=== PATIENT | female | born 1985 | race Caucasian/White ===

== ENCOUNTER 2019-12-04 07:56 | Outpatient (CLI) | payer OTHER, SELFPAY ==
--- NOTE | 2019-12-18 18:45 | WPDHOMESLEEP ---
Sleep Study - Home Date of Study: 12/04/19 Ordering Provider: Yanna Lema MD Interpreting Physician: Yanna Lema MD Home Sleep Study Type: Apnea Link Air Height: 1.73 m Weight: 172.365 kg Body Mass Index: 57.7 [place]: 8 Reason for Sleep Study Insomnia, poor quality sleep Sleep History Migel Mark is 34 years old with an initial complaint of insomnia. Her quality of sleep is poor and she does not awaken feeling rested. She has difficulty falling asleep, she wakes throughout the night and she has excessive daytime sleepiness. She has a difficult time waking in the morning. Her mother has sleep apnea. She has tried using melatonin which has not helped. She denies snoring and her snoring is never loud enough that people complain about it. She rarely awakens at night with heartburn belching or coughing. She rarely awakens from sleep feeling short of breath. She denies having difficulty sleeping with the. She does not wake up gasping for breath at night. She does not have breathing problems at night observed by others. She rarely sweats excessively at night. She does not notice her heart pounding or beating her regularly at night. She rarely falls asleep during the day never involuntarily or while driving. She does not have loss of muscle tone with strong emotion. She occasionally has daytime difficulties due to excessive sleepiness. She does not feel paralyzed on waking or falling asleep. Rarely she has vivid dreamlike scenes upon awakening or falling asleep. She has never freight [place] go to sleep and generally does not have nightmares. She rarely remembers her dreams. She occasionally has racing thoughts and occasionally has feelings of sadness depression frequently has anxiety. She does not have muscular tension. She rarely notices parts of her body jerking. She rarely kicks at night. She does not have crawl E Ned feelings in her legs and does not have leg pain at night. She rarely has morning jaw pain. She rarely grinds her teeth during sleep. She occasionally has bothered by pain during the day and is awakened by pain at night. She occasionally wakes up feeling stiff in the morning. She rarely wakes up with sore achy muscles and never wakes up with pain in the neck or spine. She wakes with a dry mouth; she attributes the dry mouth to sinus drainage into her throat, which makes her 'feel gunky'; has a rare morning headache. Has dreams about half the time. Legs used to bother her at night. Nocturia: zero to 1 times, or up to 12 times depending on how much she drinks. Has a FitBit: sleeps different times each day She has significant pain. She had sleep study negative at least 5 years ago. She has lost over 100 lb since August,. She was planning to get a gastric sleeve June 03, but the pandemic changed that. She has cut back so much eating, now eating 1 or maybe 2 meals a day, better quality food. Sleep schedule: not fixed; sleeps when she is tired. Says she is a night owl. She sleeps better in the day than at night. Lives with parents and her teenage son. She has had a poor sleep schedule for years. Disabled x years for her back; was at [employer] in 2009 - at that time, she went to bed 11:00 slept all night, woke up 8:00 am to get her son to school, would return and take a nap. She reports having poor sleep as long as she can remember. Caffeine: no soda; coffee sometimes, not regularly. Tries to drink a gallon of water a day. [facility] Past Medical History Medical History (Updated 12/18/19 @ 19:16 by Yanna Lema MD) Abnormal glucose level Allergic rhinitis Anxiety Asthma Edema Fibromyositis Low back pain Morbid obesity Multiple joint pain Obstructive sleep apnea Poor sleep hygiene Single major depressive episode, moderate Surgical History Surgical History (Updated 12/18/19 @ 19:16 by Yanna Lema MD) History of section Family History Family History (Updated 12/18/19 @ 19:13 by Celsa
[2019-12-18 19:35] VITALS: BMI 57.7
== END 2019-12-04 07:57 | disposition home or self-care (01) ==
LOC: ANHCSM 08:01
PROVIDERS: PCP Family Medicine; Visit Provider Internal Medicine Critical Care Medicine
DX: Z72.821 Inadequate sleep hygiene (principal)
CPT/HCPCS: 95806